=== PATIENT | male | born 1990 | race Caucasian/White ===

== ENCOUNTER 2019-06-27 18:22 | Emergency (ER) | payer BC ==
[~2019-06-27] VITALS: Ht 180.3 cm; Wt 81.6 kg
[2019-06-27 18:32] VITALS: BP_SYST 131
[2019-06-27] MEDS ORDERED: KETOROLAC TROMETHAMINE 60 MG/2 ML VIAL IM ONE (20:00)
[2019-06-27] MEDS ORDERED: HYDROcodone/ACETAMIN 7.5-325 MG TAB PO ONE (20:30)
[2019-06-27 20:35] VITALS: BP_SYST 131
== END 2019-06-27 20:35 | disposition home or self-care (01) ==
LOC: SED 18:22
DX: S89.91XA Unspecified injury of right lower leg, initial encounter (principal); R03.0 Elevated blood-pressure reading, without diagnosis of hypertension; W17.2XXA Fall into hole, initial encounter; Y93.89 Activity, other specified; Y92.89 Other specified places as the place of occurrence of the external cause; Y99.8 Other external cause status
CPT/HCPCS: 29505; 73564; 96372; 99283; J1885